=== PATIENT | female | born 1940 | race Caucasian/White ===

== ENCOUNTER 2020-03-17 09:42 | Outpatient (CLI) | payer MEDICARE, SELFPAY ==
--- NOTE | ~2020-03-17 | US_ITS ---
EXAMINATION: US abdomen complete EXAM DATE: 03/17/2020 10:32 INDICATION: Abdominal pain, constipation. TECHNIQUE: Multiple grayscale and Doppler images of the complete abdomen were obtained (by a technolo gist who performed the scan) and subsequently reviewed. Comparison is made to prior examination from 04/21/2014, kidneys only. FINDINGS: The abdominal aorta is normal in caliber. Visualized portion IVC is patent. The pancreatic head a nd body are normal in appearance. The pancreatic tail is not visualized. The liver has normal echogenicity and contour. There are no focal liver lesions identified. There is no evidence of intrahepatic biliary duct dilation. Portal venous flow was seen in the hepatopedal , normal direction and has normal Doppler waveform. Common bile duct measures 3 mm, which is normal. The gallbladder wall is normal in thickness, with ex pected amount of distention. No sonographic evidence of pericholecystic fluid. There is no cholelit hiases. Technologist performing exam reports patient did not demonstrate sonographic Young's sign. Please note that this sign is less reliable in patients who have received pain medication. Right kidney: There is normal contour and echogenicity. It measures 8.6 x 3.6 x 6.0 centimeters. T here are no focal renal lesions identified. There is no hydronephrosis. Left kidney: There is normal contour and echogenicity. It measures 7.7 x 3.8 x 4.7 centimeters. Th ere are no focal renal lesions identified. There is no hydronephrosis. The spleen measures 7.1 centimeters and is morphologically normal. Compared to 2013, the dimensions of the kidneys have demonstrated mild interval decrease consistent w ith mild renal atrophy bilaterally. IMPRESSION: 1. Mild bilateral renal atrophy. Reviewed, dictated and finalized at location A.
== END 2020-03-17 09:43 | disposition home or self-care (01) ==
LOC: ANHIMG 09:47
PROVIDERS: PCP Family Medicine; Visit Provider Nurse Practitioner Family
DX: R10.9 Unspecified abdominal pain (principal); N26.1 Atrophy of kidney (terminal)
CPT/HCPCS: 76700

== ENCOUNTER 2020-03-27 11:04 | Outpatient (CLI) | payer MEDICARE, SELFPAY ==
--- NOTE | ~2020-03-27 | CT_ITS ---
EXAMINATION: CT abdomen pelvis wo con DATE: 03/27/2020 11:58 INDICATION: Epigastric abdominal pain. Constipation. TECHNIQUE: Computed tomography (CT) of the abdomen and pelvis was performed without intravenous contr ast. Automated exposure control and iterative reconstruction technique were employed. The dose-length product was 229.98 mGy-cm. COMPARISON: None. FINDINGS: The visualized portions of the lung bases demonstrate mild atelectasis. No pleural effusion . The heart size is normal. No pericardial effusion. The liver, gallbladder, spleen, pancreas, adrena l glands, and kidneys are normal. There is no urolithiasis. There are no dilated loops of bowel. Ther e is wall thickening of the terminal ileum. There is fat stranding in the right lower quadrant. The a ppendix is not visualized. There are no pathologically enlarged lymph nodes. There is no free intrape ritoneal fluid. There is moderate lumbar spondylosis. IMPRESSION: 1. Wall thickening of the terminal ileum, consistent with infection versus Crohn disease. Reviewed, dictated and finalized at location A. IMPRESSION: 1. Wall thickening of the terminal ileum, consistent with infection versus Croh n disease.
== END 2020-03-27 11:05 | disposition home or self-care (01) ==
PROVIDERS: PCP Family Medicine; Visit Provider Nurse Practitioner Family
DX: R10.9 Unspecified abdominal pain (principal)
CPT/HCPCS: 74176

== ENCOUNTER 2020-06-26 11:18 | Outpatient (CLI) | payer MEDICARE, SELFPAY ==
--- NOTE | ~2020-06-26 | XR_ITS ---
EXAMINATION: XR abdomen obstructive series DATE: 06/26/2020 11:39 INDICATION: Abdomen pain TECHNIQUE: Supine and upright views of the abdomen. FINDINGS: No prior studies for comparison. The visualized lung parenchyma is normal.. There is a nonobstructive bowel gas pattern. There is surg ical suture line right abdomen consistent with previous partial colon resection. Gas and stool are se en throughout the colon to the level of the rectum. There is no free air. Calcifications in the pelv is are believed to be phleboliths. IMPRESSION: 1. No acute abdominal abnormality. Reviewed, dictated and finalized at location A.
--- NOTE | ~2020-06-26 | XR_ITS ---
EXAMINATION: XR chest 1V 06/26/2020 11:39 INDICATION: Upper abdomen pain. Previous colon resection. PROCEDURE: PA view of the chest COMPARISON: FINDINGS: The lungs are clear. The cardiomediastinal silhouette is within normal limits. There are no pleural effusions. There is no pneumothorax suspected. IMPRESSION: 1: NO ACUTE CARDIOPULMONARY DISEASE. Reviewed, dictated and finalized at location A.
== END 2020-06-26 11:19 | disposition home or self-care (01) ==
PROVIDERS: PCP Family Medicine; Visit Provider Internal Medicine Medical Oncology
DX: R10.9 Unspecified abdominal pain (principal); C18.9 Malignant neoplasm of colon, unspecified
CPT/HCPCS: 71045; 74019

== ENCOUNTER 2020-06-29 11:34 | Emergency (ER) | payer MEDICARE, SELFPAY ==
[2020-06-29] VITALS (7 sets, daily range): BP systolic 90–116; BP diastolic 53–82; PULSE 75–105; RESP 16–18; TEMP 36.6; O2SAT 97–100
--- NOTE | ~2020-06-29 | CT_ITS ---
EXAMINATION: CT abdomen pelvis w con EXAM DATE: 06/29/2020 12:55 INDICATION: Colon resection Reva. Abdominal pain today. TECHNIQUE: Spiral CT of the abdomen and pelvis was performed following intravenous injection of 100 m L Omnipaque 350. Axial, coronal and sagittal images were reviewed. The dose-length product (DLP) fo r this examination was 185.65 mGy-cm. The exposure was tailored according to patient size (auto mA e xposure control), and iterative reconstruction (ASIR) was used as additional dose reduction technique . Comparison is made to prior examination from 03/27/2020. FINDINGS: The liver, spleen, adrenal glands and pancreas are unremarkable. Gallbladder is unremarkab le. No biliary obstruction. Portal and splenic veins are patent. Kidneys enhance symmetrically. T here is no hydronephrosis. The uterus is not identified and has likely been surgically resected. There is some thickening of the inner fold of the right labia majora. The bladder is undistended at t won of imaging. There is no retroperitoneal or pelvic lymphadenopathy. There is mild scattered art eriosclerotic disease. There is fluid throughout the colon, correlate for diarrhea. There is mild rectosigmoid colonic wall edema. There is an ileocolic anastomosis site in the right lower quadrant with moderate edema of the ileum proximal to the anastomosis site. Consider enterocolitis, diarrhea. No abscess or perforation. No free intraperitoneal gas. The heart is normal in size. There are no pericardial or pleural effu sions. The lung bases are unremarkable. There are no osteoblastic or osteolytic lesions identified. IMPRESSION: 1. Ileocolic fluid and edema, consider enterocolitis. 2. Some skin thickening intervals right labia majora. Differential diagnosis includes cellulitis, ca ncer. Reviewed, dictated and finalized at location A. IMPRESSION: 1. Ileocolic fluid and edema, consider enterocolitis. 2. Some skin thickening intervals right labia majora. Differential diagnosis i ncludes cellulitis, cancer.
[2020-06-29 11:56] LABS: Basophils Percent Auto 0.1 % (0.2-1.2); Eosinophils Absolute Auto 0.1 K/mm3 (0-0.3); Eosinophils Percent Auto 0.5 % (0-4.4); Hematocrit 42.4 % (37.0-47.0); Hemoglobin 14.5 g/dL (12.0-15.0); Immature Granulocyte Absolute 0.08 K/mm3 (0.00-0.031); Immature Granulocyte Percent A 0.8 % (0-0.5); Lymphocytes Absolute Auto 1.74 K/mm3 (0.9-3.2); Lymphocytes Percent Auto 16.7 % (18.3-44.2); Mean Corpuscular HGB Conc 34.2 g/dl (32-36); Mean Corpuscular Volume 87.6 fl (80-100); Monocytes Absolute Auto 1.9 K/mm3 (0.1-0.6); Monocytes Percent Auto 17.8 % (2.6-8.5); Neutrophils Absolute Auto 6.7 K/mm3 (1.3-6.7); Neutrophils Percent Auto 64.1 % (45.5-73.1); Platelet Count Result 383 k/mm3 (150-375); Red Blood Count 4.84 M/mm3 (4.2-5.4); Red Cell Distribution Width 17.2 % (11.5-14.5); White Blood Count 10.4 K/mm3 (4.5-10.0)
[2020-06-29 12:10] LABS: Alanine Aminotransferase 11 U/L (4-35); Albumin Level 3.7 g/dL (3.5-5.1); Alkaline Phosphatase 88 U/L (38-126); Anion Gap 9 mmol/L (8-16); Aspartate Amino Transferase 18 U/L (14-36); Bilirubin,Total 0.3 mg/dL (0.2-1.3); Blood Urea Nitrogen 23 mg/dL (7-17); Calcium 9.1 mg/dL (8.4-10.2); Carbon Dioxide 27 mmol/L (22-30); Chloride 95 mmol/L (98-107); Estimated CRCL calculation 33 ml/min; Estimated Glomerular Filt Rate 53; Glucose 118 mg/dL (65-105); Lipase 93 U/L (23-300); Potassium 2.9 mmol/L (3.4-5.0); Sodium 131 mmol/L (137-145)
--- NOTE | 2020-06-29 12:16 | PC.NURSE ---
pt reminded of need for ua, states she does not have to go right now, refusing straight cath.
--- NOTE | 2020-06-29 12:40 | PC.NURSE ---
[PT AGAIN REMINDED OF NEED FOR UA, REFUSING CATH.
--- NOTE | 2020-06-29 12:56 | PC.NURSE ---
PT IN CT AT THIS TIME.
--- NOTE | 2020-06-29 13:22 | PC.NURSE ---
PT STILL UNABLE TO GIVE UA, REFUSING CATH.
--- NOTE | 2020-06-29 13:22 | ED.GENADULT ---
HPI - General Adult General Chief complaint: Abdominal Pain Stated complaint: abd pain Time Seen by Provider: 06/29/20 12:12 Source: patient History of Present Illness HPI narrative: Patient is a 80 y/o female complaining of epigastric pain for last 2-3 months. She is unable to describe the nature of pain. She rates her pain as 7/10. There is no pain radiation, no alleviating or exacerbating factor. She has no vomiting or diarrhea. Of note, she had surgery for colon cancer a few weeks ago. However, her pain was present prior to the surgery and has remained unchanged after the surgery. Related Data Home Medications Medication Instructions Recorded Confirmed Adults Multivitamin 1 tablet PO DAILY 09/25/19 09/25/19 aspirin 81 mg PO DAILY 09/25/19 09/25/19 simvastatin 40 mg DAILY 09/25/19 09/25/19 Allergies Allergy/AdvReac Type Severity Reaction Status Date / Time No Known Allergies Allergy Unknown Verified 07/21/14 09:31 Review of Systems Constitutional: Constitutional: Denies chills, Denies fever(s), Denies headache(s) and Denies weakness Eyes: Eyes: Denies blurry vision ENT: Denies headache(s) and Denies neck pain Cardiovascular: Cardiovascular: Denies chest pain and Denies dyspnea Respiratory: Respiratory: Denies cough and Denies dyspnea Gastrointestinal: Gastrointestinal: Reports abdominal pain, Denies diarrhea, Denies nausea and Denies vomiting Genitourinary: Genitourinary: Denies hematuria and Denies dysuria Musculoskeletal: Musculoskeletal: Denies back pain and Denies neck pain Neurologic: Denies headache(s) and Denies weakness PMF Past Medical History Medical History HLD (hyperlipidemia) HTN (hypertension) Hypothyroid Surgical History Surgical History H/O: hysterectomy Social History Social History Social History: The patient is and lives with her in [place]. She does states her , Rodrigo, and her family members as her surrogate decision makers and she wishes to be a full code. She denies alcohol, tobacco, and drug abuse. Smoking status: Never smoker Alcohol intake: never Substance use: never Gender identity (if verbalized by the patient): Female Spiritual care concerns: No Agree to blood products: Yes Exam Const: General: no acute distress and well developed Orientation/consciousness: oriented to person, oriented to place, oriented to time and patient oriented x3 HENMT: Head: normocephalic Ears: external ears normal General nose exam: Normal external nose present Eyes: General: appearance normal, both eyes and all related structures Conjunctivae: conjunctivae normal Neck: Neck: normal visual inspection and full ROM Chest: Chest palpation & inspection: normal inspection of the chest and no tenderness Resp: Effort & Inspection: normal respiratory effort Auscultation: clear to auscultation bilaterally Cardio: Rate: regular rate Rhythm: regular rhythm GI: GI Palp: No abdominal tenderness and Yes Soft to palpation Skin: General skin exam: normal color and turgor normal Neuro: General: oriented to person, oriented to place, oriented to time and patient oriented x3 Cognition (Neuro): normal cognition Extrem: General: normal to inspection, full ROM and no pedal edema Psych: Appearance: grossly normal Mental Status: mental status grossly normal Affect: normal affect Course Reevaluation(s) Reevaluation #1: Rechecked patient. Discussed patient about CT finding. Re-examined patient regarding CT finding of labial swelling. No significant swelling or mass is seen on labia. Patient is instructed to follow up [facility] for further evaluation. Date: 06/29/20 Time: 15:25 Consultations Consultation #1: Discussed with Dr. Kylah Ley (), who agrees with plan for discharge and will
--- NOTE | 2020-06-29 13:29 | PC.NURSE ---
PT ATTEMPTING UA NOW.
[2020-06-29 14:25] LABS: Add Urine Microscopic? YES; Appearance Urine Clear (Clear); Bacteria Urine Trace /hpf; Bilirubin Urine Negative (Negative); Blood Urine Negative (Negative); Color Urine Yellow (Yellow); Glucose Urine UA Negative (Negative); Ketones Urine Trace mg/dL (Negative); Leukocyte Esterase Ur Negative LEU/UL (Negative); Mucus Urine Few /lpf; Nitrate Urine Negative (Negative); Protein Urine Negative (Negative); Squamous Epithelial Cell Urine Rare /hpf (Few); Urobilinogen Urine Negative mg/dL (<2.0); WBC Urine 0-3 /hpf
[2020-06-29 14:26] LABS: Specific Grav Ur > 1.060 (1.001-1.035)
--- NOTE | 2020-06-29 15:22 | PC.NURSE ---
minoo pelayo at bedside to assess pt labia swelling that was shown on the pt ct scan.
[2020-06-29] MEDS: POTASSIUM CHLORIDE 20 MEQ TABLET 40 MEQ PO (16:41)
== END 2020-06-29 16:49 | disposition home or self-care (01) ==
PROVIDERS: General Practice; Emergency Provider Emergency Medicine; PCP Family Medicine
DX: R10.13 Epigastric pain (principal); E78.5 Hyperlipidemia, unspecified; I10 Essential (primary) hypertension; E03.9 Hypothyroidism, unspecified
CPT/HCPCS: 36415; 51701; 74177; 80053; 81001; 83690; 85025; 99284; A9270; Q9967

== ENCOUNTER 2020-09-20 08:43 | Outpatient (CLI) | payer MEDICARE, SELFPAY ==
--- NOTE | ~2020-09-20 | CT_ITS ---
EXAMINATION: CT abdomen pelvis w con INDICATION: Malignant neoplasm of the ascending colon TECHNIQUE: Computed tomographic images of the abdomen and pelvis were obtained after the administrati on of 100 cc of Omnipaque 350 intravenous contrast. The dose-length product (DLP) was 187.96 mGy-cm. Automated exposure control and iterative reconstruction technique were employed. COMPARISON: 06/29/2020 FINDINGS: Minimal dependent atelectasis is present in the lung bases. The heart size is normal. There is focal low attenuation of the liver adjacent to the ligamentum teres which appears similar to the comparison examination. The spleen, pancreas, and adrenal glands are normal. Stones are present in th e nondistended gallbladder. The kidneys are unremarkable. There are changes of right hemicolectomy. N o residual or recurrent mass is identified. No pathologically enlarged abdominal or pelvic lymph node s are identified. There is no free intraperitoneal gas or evidence of bowel obstruction. There is a s mall amount of free fluid in the pelvis. There is mild lumbar spondylosis. IMPRESSION: 1. Focal low-attenuation of the liver adjacent to the ligamentum teres which appears stable and likel y represents focal fatty infiltration. Attention on follow-up examination is recommended. Reviewed, dictated and finalized at location A. ATION CHECKER IMPRESSION: 1. Focal low-attenuation of the liver adjacent to the ligamentum teres which ap pears stable and likely represents focal fatty infiltration. Attention on follo w-up examination is recommended.
[2020-09-20 10:32] LABS: Estimated Glomerular Filt Rate 53
== END 2020-09-20 08:44 | disposition home or self-care (01) ==
PROVIDERS: PCP Family Medicine; Visit Provider Internal Medicine Medical Oncology
DX: C18.2 Malignant neoplasm of ascending colon (principal); K80.80 Other cholelithiasis without obstruction
CPT/HCPCS: 74177; Q9967

== ENCOUNTER 2021-02-21 10:28 | Outpatient (CLI) | payer MEDICARE, SELFPAY ==
--- NOTE | ~2021-02-21 | CT_ITS ---
EXAMINATION: CT abdomen pelvis w con DATE: 02/21/2021 11:06 INDICATION: Ascending colon cancer TECHNIQUE: Computed tomography (CT) of the abdomen and pelvis was performed with 100 mL Omnipaque-350 intravenous contrast. Automated exposure control and iterative reconstruction technique were employe d. The dose-length product was 242.37 mGy-cm. COMPARISON: 09/20/2020 FINDINGS: Mild dependent atelectasis in the bilateral lower lobes. Heart size is normal. No pericardial or pleu ral effusion. Focal hepatic steatosis at the ligamentum teres. Tiny calcified gallstones layering in the dependent aspect of the fundus of the otherwise normal gallbladder. Spleen, pancreas, bilateral a drenal glands and kidneys are normal. Postoperative change of prior right hemicolectomy with right lo wer quadrant ileocolic anastomosis. No bowel obstruction. Bladder is normal. The uterus is not identi fied and has likely been surgically resected. No free intraperitoneal gas or fluid. No pathologically enlarged abdominal or pelvic lymphadenopathy. Mild lumbar dextrocurvature with mild thoracolumbar sp ondylosis. IMPRESSION: 1. Postoperative change of prior right hemicolectomy for reported colon cancer. No evident residual/r ecurrent or metastatic disease. 2. Cholelithiasis. Reviewed, dictated and finalized at location A. IMPRESSION: 1. Postoperative change of prior right hemicolectomy for reported colon cancer. No evident residual/recurrent or metastatic disease. 2. Cholelithiasis.
[2021-02-21 10:58] LABS: Estimated Glomerular Filt Rate 43
== END 2021-02-21 10:29 | disposition home or self-care (01) ==
PROVIDERS: PCP Family Medicine; Visit Provider Internal Medicine Medical Oncology
DX: C18.2 Malignant neoplasm of ascending colon (principal); Z90.49 Acquired absence of other specified parts of digestive tract; K80.20 Calculus of gallbladder without cholecystitis without obstruction
CPT/HCPCS: 74177; Q9967

== ENCOUNTER 2021-04-11 09:33 | Outpatient (CLI) | payer MEDICARE, SELFPAY ==
--- NOTE | ~2021-04-11 | NM_ITS ---
EXAMINATION: NM hepatobiliary wo pharm DATE: 04/11/2021 12:24 INDICATION: Epigastric pain COMPARISON: CT abdomen and pelvis dated 02/21/2021 TECHNIQUE: 4.9 mCi Tc-99m mebrofenin (Choletec) was administered intravenously. Scintigraphic images of the abdomen were obtained for one hour. At the 1 hour time point, the patient drank 8 oz Ensure, and imaging was continued for 60 minutes. Gallbladder ejection fraction was calculated by the technol ogist. FINDINGS: There is normal clearance of radiotracer from the blood pool. There is homogeneous tracer u ptake by the liver. Activity progresses to the bowel and gallbladder. The gallbladder ejection fract ion (GBEF) is 67%. Note that with this technique, normal GBEF >= 33%. IMPRESSION: 1. Normal hepatobiliary scan. Reviewed, dictated and finalized at location A.
== END 2021-04-11 09:34 | disposition home or self-care (01) ==
PROVIDERS: PCP Family Medicine; Visit Provider Surgery
DX: K80.20 Calculus of gallbladder without cholecystitis without obstruction (principal); R10.13 Epigastric pain
CPT/HCPCS: 78226; A9537

== ENCOUNTER 2021-05-24 01:38 | Day surgery (SDC) | payer MEDICARE, SELFPAY ==
[2021-05-16 13:31] VITALS: BMI 21.6
[2021-05-24 10:24] VITALS: BP 131/71; PULSE 81; RESP 16; TEMP 35.7; O2SAT 99; BMI 21.5
--- NOTE | 2021-05-24 10:27 | P.PNAN_ITS ---
Anes - Initial Pre Proc Eval Procedure: Operation Date: 05/24/21 11:30 Proposed Procedures p Screening Colonoscopy - James Nickerson MD Date/Time: 05/24/21 10:27 Surgeon: James Nickerson MD Pre Op Diagnosis: hx of colon ca Patient Data Age: 81 Gender: F Height: 1.65 m Weight: 59 kg Allergies Allergy/AdvReac Type Severity Reaction Status Date / Time No Known Allergies Allergy Unknown Verified 05/24/21 10:22 Home Medications Medication Instructions Recorded Confirmed Type Adults Multivitamin 1 tablet PO DAILY 09/25/19 05/16/21 History aspirin 81 mg PO DAILY 09/25/19 05/16/21 History levothyroxine 75 mcg PO DAILY #30 tablet 09/26/19 05/16/21 Rx Patient hx anesthesia problems: none Family hx anesthesia problems: none PMFSH Past Medical History Medical History History of colon cancer HLD (hyperlipidemia) HTN (hypertension) Hypothyroid Surgical History Surgical History H/O: hysterectomy History of colon resection Family History Family History Father Lung cancer Mother Throat cancer Social History Social History Social History: The patient is and lives with her in [place]. She does states her , Rodrigo, and her family members as her surrogate decision makers and she wishes to be a full code. She denies alcohol, tobacco, and drug abuse. Smoking status: Never smoker Alcohol intake: never Substance use: never Substance use type: does not use Living arrangements: with family Gender identity (if verbalized by the patient): Female Spiritual care concerns: No Agree to blood products: Yes Anes - Eval Final PreProcedure Day of Procedure 05/24/21 10:27 Patient weight: normal Heart: regular rate and rhythm Lungs: clear to auscultation Airway: Mallampati scale class II Neurological: alert and oriented Last oral intake: >/= 8 hours ASA classification: III Emergent: no Anesthetic plan: proceed Anesthesia type and monitoring: general GIVS and standard monitoring Informed Consent: The patient's anesthetic plan and its attendant risks and benefits were discussed with the patient/family/POA. Questions were solicited and answers provided to the satisfaction of the patient/family/POA.
--- NOTE | 2021-05-24 10:37 | WPDGICN ---
Assessment and Plan Assessment and plan (1) Epigastric pain: Code(s): R10.13 - Epigastric pain Status: Acute Assessment and Plan: Patient is epigastric pain of uncertain etiology. Recent HIDA scan was normal for this reason EGD will be performed. (2) Cholelithiasis: Code(s): K80.20 - Calculus of gallbladder without cholecystitis without obstruction Status: Acute Assessment and Plan: Gallstones identified by CT scan. Patient has vague a upper abdominal discomfort. Etiology remains unclear patient will follow up with surgery because of her gallstones. (3) History of colon cancer: Code(s): Z85.038 - Personal history of other malignant neoplasm of large intestine Status: Inactive Assessment and Plan: Patient had colon cancer resected 1 year. Plan is for surveillance colonoscopy at this time. One year after resection. GI Consult Note Consult date/time: 05/24/21 10:37 HPI: Ella Krishna is a 81 year old female Presents for screening colonoscopy. Patient has history of colon cancer found 1 year ago in [facility]. patient presents today for follow-up colonoscopy 1 year after resection. Patient reports that ever since surgery she has vague discomfort across the upper portion of her abdomen. She has undergone evaluation includes CT scan of the abdomen which revealed cholelithiasis. Recent HIDA scan was unremarkable and considered normal. Patient has been followed by Dr. Cronin of surgery for this discomfort. Patient reports that her bowel habits are much improved after colon resection. Her family history is noncontributory. She does indeed have epigastric pain. Review of Systems Review of Systems: All systems reviewed & are unremarkable except as noted in HPI and below PMFSH Past Medical History Medical History (Updated 05/24/21 @ 10:41 by James Nickerson MD) History of colon cancer HLD (hyperlipidemia) HTN (hypertension) Hypothyroid Surgical History Surgical History H/O: hysterectomy History of colon resection Family History Family History Father Lung cancer Mother Throat cancer Social History Social History Social History: The patient is and lives with her in [place]. She does states her , Rodrigo, and her family members as her surrogate decision makers and she wishes to be a full code. She denies alcohol, tobacco, and drug abuse. Smoking status: Never smoker Alcohol intake: never Substance use: never Substance use type: does not use Living arrangements: with family Gender identity (if verbalized by the patient): Female Spiritual care concerns: No Agree to blood products: Yes Meds Home Medications and Allergies Home Medications Medication Instructions Recorded Confirmed Type Adults Multivitamin 1 tablet PO DAILY 09/25/19 05/16/21 History aspirin 81 mg PO DAILY 09/25/19 05/16/21 History levothyroxine 75 mcg PO DAILY #30 tablet 09/26/19 05/16/21 Rx Allergies Allergy/AdvReac Type Severity Reaction Status Date / Time No Known Allergies Allergy Unknown Verified 05/24/21 10:22 Vital Signs Vital Signs - 24 hr 05/24/21 10:24 Temperature 96.3 F L Pulse Rate 81 Respiratory Rate 16 Blood Pressure 131/71 Pulse Oximetry 99 Exam Narrative: Physical exam reveals patient to be alert. Vital signs stable. HEENT exam is unremarkable. Patient is anicteric. Lungs are clear to auscultation and percussion. Heart is without murmur or extra sounds. Abdominal exam bowel sounds present soft nontender no organomegaly evident. No at masses palpable. Digital external rectal exam is normal.
[2021-05-24] MEDS: LACTATED RINGERS 1,000 ML 150 ML IV CONT (10:38)
[2021-05-24 11:23] VITALS: BP 101/54; PULSE 64; RESP 18; O2SAT 99
[2021-05-24 11:33] VITALS: BP 111/62; PULSE 63; RESP 16; O2SAT 99
[2021-05-24 11:43] VITALS: BP 111/62; PULSE 60; RESP 16; O2SAT 99
== END 2021-05-24 12:05 | disposition home or self-care (01) ==
PROVIDERS: PCP Family Medicine; Visit Provider Internal Medicine Gastroenterology
PROC: 0DJD8ZZ Inspection of Lower Intestinal Tract, Via Natural or Artificial Opening Endoscopic (ICD-10-PCS; CPT 45378; principal; 2021-05-24 11:30)
DX: Z12.11 Encounter for screening for malignant neoplasm of colon (principal); K63.5 Polyp of colon; K64.8 Other hemorrhoids; Z85.038 Personal history of other malignant neoplasm of large intestine; Z98.0 Intestinal bypass and anastomosis status; Z90.49 Acquired absence of other specified parts of digestive tract; R10.13 Epigastric pain; K80.20 Calculus of gallbladder without cholecystitis without obstruction; I10 Essential (primary) hypertension; E78.5 Hyperlipidemia, unspecified; E03.9 Hypothyroidism, unspecified
CPT/HCPCS: 45385; 43239; 87081; 88305; J2704; J7120

== ENCOUNTER 2021-08-19 09:15 | Outpatient (CLI) | payer MEDICARE, SELFPAY ==
--- NOTE | ~2021-08-19 | CT_ITS ---
EXAMINATION: CT abdomen pelvis w con INDICATION: Malignant neoplasm of the ascending colon TECHNIQUE: Computed tomographic images of the abdomen and pelvis were obtained after the administrati on of 100 cc of Omnipaque 350 intravenous contrast. The dose-length product (DLP) was 280.76 mGy-cm. Automated exposure control and iterative reconstruction technique were employed. COMPARISON: 02/21/2021 FINDINGS: Minimal dependent atelectasis is present in the lung bases. The heart size is normal. Again noted is focal steatosis. Ligamentous areas of the liver. The spleen, pancreas, and adrenal glands a re normal. Stones layer in the nondistended gallbladder. The kidneys are unremarkable. No pathologica lly enlarged abdominal or pelvic lymph nodes are identified. There is no free intraperitoneal gas or evidence of bowel obstruction. There is calcified atherosclerosis of the aorta and many of the other arteries. There are changes of right hemicolectomy. There is mild lumbar spondylosis. There is an in tramuscular lipoma of the right chest wall. IMPRESSION: 1. Changes of right hemicolectomy without evidence of recurrent or metastatic disease. 2. Cholelithiasis without evidence of cholecystitis. Reviewed, dictated and finalized at location B. IMPRESSION: 1. Changes of right hemicolectomy without evidence of recurrent or metastatic d isease. 2. Cholelithiasis without evidence of cholecystitis.
[2021-08-19 09:45] LABS: Estimated Glomerular Filt Rate 43
== END 2021-08-19 09:16 | disposition home or self-care (01) ==
PROVIDERS: PCP Family Medicine; Visit Provider Internal Medicine Medical Oncology
DX: C18.2 Malignant neoplasm of ascending colon (principal); Z90.49 Acquired absence of other specified parts of digestive tract; K80.20 Calculus of gallbladder without cholecystitis without obstruction
CPT/HCPCS: 74177; Q9967

== ENCOUNTER 2021-12-29 09:58 | Outpatient (CLI) | payer MEDICARE, SELFPAY ==
--- NOTE | ~2021-12-29 | CT_ITS ---
EXAMINATION: CT abdomen pelvis w con DATE: 12/29/2021 10:29 INDICATION: Malignant neoplasm of ascending colon. TECHNIQUE: Computed tomography (CT) of the abdomen and pelvis was performed with 100 mL Omnipaque 350 intravenous contrast. Automated exposure control and iterative reconstruction technique were employe d. The dose-length product was 352.85 mGy-cm. COMPARISON: CT abdomen and pelvis 08/19/2021 FINDINGS: The visualized portions of the lung bases demonstrate mild atelectasis. No pleural effusion . The heart size is normal. No pericardial effusion. The liver demonstrates focal steatosis adjacent to the falciform ligament. There are gallstones in the gallbladder, which is normal in size. The sple en, adrenal glands, and kidneys are normal. Pancreas divisum is noted. There are changes of right hem icolectomy. There are no pathologically enlarged lymph nodes. There is no free intraperitoneal fluid. There is mild thoracic spondylosis and moderate lumbar spondylosis. IMPRESSION: 1. No evidence of metastatic disease. Reviewed, dictated and finalized at location A.
[2021-12-29 10:25] LABS: Estimated Glomerular Filt Rate 48
== END 2021-12-29 09:59 | disposition home or self-care (01) ==
PROVIDERS: PCP Family Medicine; Visit Provider Internal Medicine Medical Oncology
DX: C18.2 Malignant neoplasm of ascending colon (principal); R10.9 Unspecified abdominal pain; M47.815 Spondylosis without myelopathy or radiculopathy, thoracolumbar region
CPT/HCPCS: 74177; Q9967

== ENCOUNTER 2022-07-25 08:42 | Outpatient (CLI) | payer MEDICARE, SELFPAY ==
--- NOTE | ~2022-07-25 | CT_ITS ---
EXAMINATION: CT abdomen pelvis w con INDICATION: Malignant neoplasm of the ascending colon TECHNIQUE: Computed tomographic images of the abdomen and pelvis were obtained after the administrati on of 100 cc of Omnipaque 350 intravenous contrast. The dose-length product (DLP) was 362.86 mGy-cm. Automated exposure control and iterative reconstruction technique were employed. COMPARISON: 12/29/2021 FINDINGS: Minimal dependent atelectasis is present in the lung bases. The heart size is normal. There is focal fatty infiltration of the liver near the ligamentum teres. Stones are present in the nondis tended gallbladder. The spleen and adrenal glands are normal. The kidneys are unremarkable. Pancreas divisum is noted. No pathologically enlarged abdominal or pelvic lymph nodes are identified. There is no free intraperitoneal gas or evidence of bowel obstruction. There are changes of right hemicolecto my. There are fat-containing umbilical and periumbilical hernias. Moderate lumbar IMPRESSION: 1. Changes of right hemicolectomy without evidence of metastatic disease. 2. Cholelithiasis without evidence of cholecystitis. Reviewed, dictated and finalized at location A.
[2022-07-25 09:09] LABS: Estimated Glomerular Filt Rate 43
== END 2022-07-25 08:43 | disposition home or self-care (01) ==
PROVIDERS: PCP Family Medicine; Visit Provider Internal Medicine Medical Oncology
DX: C18.2 Malignant neoplasm of ascending colon (principal); Z90.49 Acquired absence of other specified parts of digestive tract; K80.20 Calculus of gallbladder without cholecystitis without obstruction
CPT/HCPCS: 74177; Q9967

== ENCOUNTER 2023-01-19 09:39 | Outpatient (CLI) | payer MEDICARE, SELFPAY ==
--- NOTE | ~2023-01-19 | CT_ITS ---
EXAMINATION: CT abdomen pelvis w con DATE: 01/19/2023 10:31 INDICATION: Malignant neoplasm of the ascending colon. TECHNIQUE: Computed tomography (CT) of the abdomen and pelvis was performed with 100 mL Omnipaque-350 intravenous contrast. Automated exposure control and iterative reconstruction technique were employe d. The dose-length product was 424.47 mGy-cm. COMPARISON: 07/25/2022 FINDINGS: Focal hepatic steatosis at the ligamentum teres. Tiny calcified gallstones layering the dependent asp ect of the normal gallbladder. No intra-axial hepatic biliary ductal dilation or findings to suggest acute cholecystitis. Pancreas, spleen, bilateral adrenal glands and kidneys are normal. Proximal righ t hemicolectomy reportedly for malignant neoplasm with right lower quadrant ileocolic anastomosis. Александр wels are otherwise unremarkable with no obstruction. Bladder is normal. The uterus is not identified and has likely been surgically resected. No free intraperitoneal gas or fluid. No pathologically enla rged abdominal or pelvic lymphadenopathy. Small fat-containing infraumbilical ventral hernia. Moderat e lumbar spondylosis. IMPRESSION: 1. Status post right hemicolectomy reportedly for malignant neoplasm with no evident local recurrence or metastatic disease. 2. Cholelithiasis. Reviewed, dictated and finalized at location A. IMPRESSION: 1. Status post right hemicolectomy reportedly for malignant neoplasm with no ev ident local recurrence or metastatic disease. 2. Cholelithiasis.
[2023-01-19 10:21] LABS: Estimated Glomerular Filt Rate 48
== END 2023-01-19 09:40 | disposition home or self-care (01) ==
PROVIDERS: PCP Family Medicine; Visit Provider Internal Medicine Medical Oncology
DX: C18.2 Malignant neoplasm of ascending colon (principal); Z90.49 Acquired absence of other specified parts of digestive tract; K80.20 Calculus of gallbladder without cholecystitis without obstruction
CPT/HCPCS: 74177; Q9967

== ENCOUNTER 2023-07-20 08:41 | Outpatient (CLI) | payer MEDICARE, SELFPAY ==
--- NOTE | ~2023-07-20 | CT_ITS ---
Clinical Indication: Colon cancer CT Scan of the Chest, Abdomen, and Pelvis with Contrast: Technique: Contiguous sections were acquired throughout the chest, abdomen, and pelvis after intraven ous administration of 100 cc of Omnipaque 350. Dose reduction technique was used on this scan by chapis gaonaing automated exposure control and iterative reconstruction technique. The dose-length product (DL P) was 517.66 mGy-cm. COMPARISON: 01/19/2023 Findings: There is no evidence of any significant mediastinal, hilar or axillary lymphadenopathy. The mediastin al soft tissues appear normal. There is no evidence of pleural or pericardial effusion. 3 mm right upper lobe pulmonary nodule noted (axial image 32). The liver, spleen, pancreas, adrenals and kidneys are within normal limits. Small layering gallstones are present. No evidence of aortic aneurysm. No lymphadenopathy. No bowel obstruction or bowel wall thickening. There is evidence of prior partial right colectomy. Ve ry small ventral fat-containing hernia noted. Urinary bladder is unremarkable. Patient is post hysterectomy. No adnexal mass seen. No ascites. Impression: No definite evidence for active malignancy or metastatic disease. Prior partial right colectomy. Cholelithiasis. 3 mm right upper lobe pulmonary nodule, indeterminate, though likely benign. Reviewed, dictated and finalized at location . Impression: No definite evidence for active malignancy or metastatic disease. Prior partial right colectomy. Cholelithiasis. 3 mm right upper lobe pulmonary nodule, indeterminate, though likely benign.
[2023-07-20 09:07] LABS: Estimated Glomerular Filt Rate 43
== END 2023-07-20 08:42 | disposition home or self-care (01) ==
PROVIDERS: PCP Family Medicine; Visit Provider Internal Medicine Medical Oncology
DX: C18.2 Malignant neoplasm of ascending colon (principal); Z90.49 Acquired absence of other specified parts of digestive tract; K80.20 Calculus of gallbladder without cholecystitis without obstruction; R91.1 Solitary pulmonary nodule
CPT/HCPCS: 71260; 74177; Q9967

== ENCOUNTER 2024-01-18 09:17 | Outpatient (CLI) | payer MEDICARE, SELFPAY ==
--- NOTE | ~2024-01-18 | CT_ITS ---
EXAMINATION: CT abdomen pelvis w con DATE: 01/18/2024 09:43 INDICATION: Malignant neoplasm of ascending colon. TECHNIQUE: Computed tomography (CT) of the abdomen and pelvis was performed with 100 mL Omnipaque 350 intravenous contrast. Automated exposure control and iterative reconstruction technique were employe d. The dose-length product was 350.10 mGy-cm. COMPARISON: CT abdomen and pelvis 07/20/2023 FINDINGS: The visualized portions of the lung bases demonstrate mild atelectasis. There is a trace le ft pleural effusion. The heart size is normal. No pericardial effusion. The liver demonstrates focal steatosis adjacent to the falciform ligament. There are gallstones in the gallbladder, which is gris l in size. The spleen, pancreas, adrenal glands, and kidneys are normal. There are dilated loops of b owel. There are changes of right hemicolectomy. There are no pathologically enlarged lymph nodes. The re is no free intraperitoneal fluid. There is severe lumbar spondylosis and mild thoracic spondylosis . IMPRESSION: 1. No evidence of metastatic disease. Reviewed, dictated and finalized at location A.
[2024-01-18 09:38] LABS: Estimated Glomerular Filt Rate 43
== END 2024-01-18 09:18 | disposition home or self-care (01) ==
PROVIDERS: PCP Family Medicine; Visit Provider Internal Medicine Medical Oncology
DX: C18.2 Malignant neoplasm of ascending colon (principal)
CPT/HCPCS: 74177; Q9967

== ENCOUNTER 2024-07-18 09:37 | Outpatient (CLI) | payer MEDICARE, SELFPAY ==
--- NOTE | ~2024-07-18 | CT_ITS ---
Clinical Indication: Colon cancer CT Scan of the Chest, Abdomen, and Pelvis with Contrast: Technique: Contiguous sections were acquired throughout the chest, abdomen, and pelvis after intraven ous administration of 100 cc of Omnipaque 350. Dose reduction technique was used on this scan by chapis lock automated exposure control and iterative reconstruction technique. The dose-length product (DL P) was 338.56 mGy-cm. Comparison: 01/18/2024 Findings: There is no evidence of any significant mediastinal, hilar or axillary lymphadenopathy. The mediastin al soft tissues appear normal. There is no evidence of pleural or pericardial effusion. The lungs are clear. No pulmonary nodules or infiltrates are noted. The liver, spleen, pancreas, gallbladder, adrenals and kidneys are within normal limits. There are mi ld atherosclerotic calcifications of the aorta. No lymphadenopathy. No bowel obstruction or bowel wall thickening. Evidence of prior partial right colectomy. Urinary bladder is unremarkable. No pelvic mass seen. No ascites. Impression: No evidence for active malignancy or metastatic disease. Prior partial right colectomy. Reviewed, dictated and finalized at [facility]. Impression: No evidence for active malignancy or metastatic disease. Prior partial right co lectomy.
[2024-07-18 09:59] LABS: Estimated Glomerular Filt Rate 47
== END 2024-07-18 09:38 | disposition home or self-care (01) ==
LOC: ANHIMG 09:39
PROVIDERS: PCP Nurse Practitioner Family; Visit Provider Internal Medicine Medical Oncology
DX: C18.2 Malignant neoplasm of ascending colon (principal); Z90.49 Acquired absence of other specified parts of digestive tract
CPT/HCPCS: 71260; 74177; Q9967

== ENCOUNTER 2025-01-13 08:04 | Outpatient (CLI) | payer MEDICARE, SELFPAY ==
--- NOTE | ~2025-01-13 | CT_ITS ---
EXAMINATION: CT chest abdomen pelvis w con DATE: 01/13/2025 8:34 CDT INDICATION: Neoplasm of the ascending colon TECHNIQUE: Computed tomography (CT) of the chest and abdomen was performed without intravenous contra st. The dose-length product was 294.89 mGy-cm. Automated exposure control and iterative reconstructio n technique were employed. COMPARISON: CT dated 07/18/2024 and 07/20/2023 FINDINGS: CHEST CT: Enlarged right pulmonary artery suggesting pulmonary hypertension. No thoracic lymphadenopathy. No si gnificant pleural or pericardial effusion. There are small 2-3 oh millimeter upper lobe nodules, like ly benign without change. No significant abnormality of the aorta. No endobronchial lesions. There is dependent atelectasis. No pneumothorax. No focal airspace consolidation. ABDOMEN CT: Fatty infiltration of the liver. The spleen, pancreas, adrenal glands and kidneys are unremarkable. S tatus post partial right colectomy. Moderate thoracic and lumbar spondylosis. No focal lytic or blast ic lesions. Nonobstructive bowel gas pattern. Small infraumbilical hernia containing fat. IMPRESSION: 1. No evidence for residual/recurrent malignancy or metastatic disease. Reviewed, dictated and finalized at location A.
--- OUTSIDE RECORDS SUMMARY | 2025-01-13 08:09 | XMS_ITS | Clinical Summary ---
Author Organization [facility] [address] Address [address] [place] [address] Care Team Providers Care Web Developer Name Role Phone Marina Zhou MD Primary Care Provider + Kevin Jimenez DO Unavailable [phone] Allergies No known active allergies Medications levothyroxine (SYNTHROID) 50 mcg tablet Euthyrox 50 mcg tablet TAKE 1 TABLET BY MOUTH ONCE DAILY Active aspirin 81 mg enteric coated tablet daily Active multivitamin capsule Take 1 capsule by mouth daily Active cranberry 400 mg capsule cranberry 400 mg capsule Take by oral route. Active pantoprazole DR (PROTONIX) 40 mg EC tablet Take 1 tablet (40 mg total) by mouth daily 30 tablet 1 2 Active Active Problems Problem Noted Date Diagnosed Date Chronic renal failure 07/26/2020 Hyperlipidemia 07/26/2020 Hypothyroidism 07/26/2020 Osteopenia 07/26/2020 Malignant neoplasm of ascending colon 06/03/2020 Cancer Staging:Clinical stage from 06/03/2020:Stage IIIB(cT3, cN1a, cM0) - Signed by Kevin Jimenez DO on 06/03/2020 Hypertension Resolved Problems Problem Noted Date Diagnosed Date Resolved Date Hypercalcemia 07/26/2020 08/02/2020 Polyp of colon 07/26/2020 08/02/2020 Immunizations Immunization Administration Dates Next Due Influenza, Quadrivalent, Spl it, Preservative Free, Intramuscular 07/23/2018,08/11/2015 Influenza, Trivalent, High D ose, Split, Preservative Free, Intramuscular 08/06/2019,09/10/2017,08/02/2016,08/04 Influenza, Trivalent, IM (MDV) 5,08/03/2014,09/22/2013,08/08 Influenza, Trivalent, Preser vative Free, Intramuscular 08/04/2013 Influenza, Unspecified 07/20/2021,07/13/2020 Pfizer SARS-CoV-2 Monovalent Vaccination (12+ Yrs) PURPLE 08/09/2021,12/10/2020,11/19/2020 Pneumococcal Conjugate PCV 13 11/15/2017 Td, adsorbed 02/15/1996 Tdap 02/16/2016 Surgical History Surgery Date Site/Laterality Comments COLONOSCOPY HYSTERECTOMY 10/15/1984 - 10/14/1985 unsure if ovaries removed COLON SURGERY 04/14/2020 - 05/14/2020 Right Laparoscopic hand assisted right hemicolectomy Medical History Medical History Date Comments Pneumoperitoneum Family History Medical History Relation Name Comments Lung Cancer Father Lung cancer Father Stomach cancer Maternal Grandmother Throat cancer Mother throat cancer Mother Relation Name Status Comments Father Maternal Grandmother Mother Social History Tobacco Use Types Packs/Day Years Used Date Smoking Tobacco: Never Smokeless Tobacco: Never Alcohol Use Standard Drinks/Week Comments Not Currently 0 (1 standard drink = 0.6 oz pur e alcohol) AUDIT-C Answer Date Recorded Q1: How often do you have a drink containing alcohol? Never 07/25/2024 Q2: How many drinks containi ng alcohol do you have on a typical day when you are drinking? Patient does not drink Frequency of Binge Drinking Not on file 07/15 Personal Safety Answer Date Recorded Getting School Help Needed Not on file 10/07 Education Answer Date Recorded What is the highest level of school you have completed or the highest degree you have received? 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 Not on file Not on file Not on file Obstetrics History Para Term AB IAB SAB Ectopic Multiple Livin g Live Births 2 2 2 2 2 Date Outcome GA Total Labor Labor/2nd/3rd Weight Sex Type Anes PTL Barbara A1 A5 Name Clin Term Term Comments x 2 Last Filed Vital Signs Vital Sign Reading Time Taken Comments Blood Pressure 118/77 07/25/2024 10:53 AM CDT Pulse 75 07/25/2024 10:53 AM CDT Temperature 36.8 C (98.3 F) 07/25/2024 10:53 AM CDT Respiratory Rate 18 07/25/2024 10:5 3 AM CDT Oxygen Saturation 95% 07/25/2024 10: 53 AM CDT Inhaled Oxygen Concentration - - Weight 57.8 kg (127 lb 6.8 oz) 07/25/20 10:53 AM CDT with shoes Height 161.3 cm (5' 3.5 ) 07/27/2023 10 :47 AM CDT Body Mass Index 22.22 07/27/2023 10:47 AM CDT Plan of Treatment Health Maintenance Due Date Last Done Comments Depression Screening 1941 Fall Risk Assessment 1941 Osteoporosis Screening-Bone Density Scan 1941 Hepatitis B Screening 1959 Zoster Vaccine (1 of 2) 1991 Well Visit 65+ 2006 Pneumococcal vaccine 65+ (2 of 2 - PPSV23) 11/15/2018 11/15/2017 Covid-19 Vaccine (2023-2 5 season) 2024 08/09/2021, 12/10/2020, 11/19/2020 Influenza Vaccine (#1) 2024 , 07/13/2020, 08/06/2019, Additional history exists DTaP/Tdap/Td Vaccine (2 - Td or Tdap) 02/15/2026 02/16/2016, 02/15/1996 Procedures Procedure Name Priority Date/Time Associated Diagnosis Comments COMPREHENSIVE METABOLIC PANEL Routine 01/09/2025 12:00 PM CDT Malignant neoplasm of ascending colon (HCC) CEA Routine 01/09/2025 12:00 PM CDT Malignant neoplasm of ascending colon (HCC) CBC WITH AUTO DIFFERENTIAL Routine 01/09/2025 12:00 PM CDT Malignant neoplasm of ascending colon (HCC) from Last 3 Months Results * CBC with auto differential (01/09/2025 12:00 PM CDT) WBC 6.1 3.8 - 10.8 Thousand/u L [facility] RBC, POC 3.95 3.80 - 5.10 Million/uL [facility] Hgb 12.3 11.7 - 15.5 g/dL [facility] Hct 38.2 35.0 - 45.0 % [facility] MCV 96.7 80.0 - 100.0 fL [facility] MCH 31.1 27.0 - 33.0 pg [facility] MCHC 32.2 32.0 - 36.0 g/dL [facility] Comment: For adults, a slight decrease in the calculated MCHC value (in the range of 30 to 32 g/dL) is most likely not clinically significant; however, it should be interpreted with caution in correlation with other red cell parameters and the patient's clinical condition. Rdw 11.7 11.0 - 15.0 % [facility] Platelets 348 140 - 400 Thousand/u L [facility] MPV 9.6 7.5 - 12.5 fL [facility] Neutrophils, abs 2,922 1,500 - 7,800 cells/uL [facility] Lymphocytes, abs 2,361 850 - 3,900 cells/uL [facility] Monocyte abs 659 200 - 950 cells/uL [facility] Eosinophils, abs 128 15 - 500 cells/uL [facility] Basophils, abs 31 0 - 200 cells/uL [facility] Neutrophils 47.9 % [facility] Lymphocyte pct 38.7 % [facility] Monocytes 10.8 % [facility] Eosinophils 2.1 % [facility] Basophils 0.5 % [facility] Blood 01/09/2025 12:0 0 PM CDT 01/09/2025 12:01 PM CDT Kevin Jimenez DO LAB BLOOD ORDERABLES Final R esult [facility] [address] [place] [address] * CEA (01/09/2025 12:00 PM CDT) [facility] CEA <2.0 See Note: ng/mL [facility] Comment: Reference Range: Non-Smoker: <2.5 Smoker: <5.0 This test was performed using the Siemens chemiluminescent method. Values obtained from different assay methods cannot be used interchangeably. CEA levels, regardless of value, should not be interpreted as absolute evidence of the presence or absence of disease. Blood 01/09/2025 12:0 0 PM CDT 01/09/2025 12:01 PM CDT us Kevin Jimenez DO LAB BLOOD ORDERABLES Final R esult [facility] [address] [place] [address] * (ABNORMAL) Comprehensive metabolic panel (01/09/2025 12:00 PM CDT) [facility] Glucose 95 65 - 99 mg/dL [facility] Comment: Fasting reference interval BUN 12 7 - 25 mg/dL [facility] Creatinine 0.95 0.60 - 0.95 mg/dL [facility] eGFR 59(L) > OR = 60 mL/min/1.7 3m2 [facility] BUN/creat ratio SEE NOTE: 6 - 22 (calc) [facility] Comment: Not Reported: BUN and Creatinine are within reference range. Sodium 140 135 - 146 mmol/L [facility] Potassium, pl 4.0 3.5 - 5.3 mmol/L [facility] Chloride 105 98 - 110 mmol/L [facility] CO2 29 20 - 32 mmol/L [facility] Calcium 9.3 8.6 - 10.4 mg/dL [facility] Protein, sr 5.8(L) 6.1 - 8.1 g/dL [facility] Albumin 3.5(L) 3.6 - 5.1 g/dL [facility] GLOBULIN 2.3 1.9 - 3.7 g/dL (calc) [facility] Alb/glob ratio 1.5 1.0 - 2.5 (calc) [facility] Bilirubin, total 0.4 0.2 - 1.2 mg/dL [facility] Alk phos 93 37 - 153 U/L [facility] AST 23 10 - 35 U/L [facility] ALT (SGPT) 14 6 - 29 U/L [facility] Blood 01/09/2025 12:0 0 PM CDT 01/09/2025 12:01 PM CDT Kevin Jimenez DO LAB BLOOD ORDERABLES Final R esult [facility] [id number] [place] [address] from Last [address] [facility] MDCR HMO REF [facility] MEDICARE ADVANTAGE [facility] MEDICARE ADVANTAGE Care Teams Web Developer Relationship Specialty Start Date End Date Marina Zhou MD PCP - General Family Medicine 09/25/19 Kevin Jimenez DO Medical Oncologist/Card Puncher Hematology and Oncology 11/25/20
--- OUTSIDE RECORDS SUMMARY | 2025-01-13 08:09 | XMS_ITS | Clinical Summary ---
Author Organization [facility] Address [address] [place] [address] Care Team Providers Care Glass Washer Name Role Phone Unavailable Primary Care Provider Unavailabl e Social History Tobacco Use Types Packs/Day Years Used Date Smoking Tobacco: Never Assessed Comments Unknown Sex and Gender Information Value Date Recorded Sex Assigned at Not on file Legal Sex Female 5:13 PM CDT Gender Identity Not on file Sexual Orientation Not on file Plan of Treatment Health Maintenance Due Date Last Done Comments DTaP, Tdap and Td Vaccines ( 1 - Tdap) 1960 Zoster Vaccines (1 of 2) 1991 Dexa Scan (General) 2006 Pneumococcal Vaccine: 65+ Ye ars (1 of 1 - PCV) 2006 RSV Immunization or 60+ Years (1 - 1-dose 75+ series) 2016 COVID-19 Vaccine (2023-2 5 season) 2024 Influenza Adult (#1) 2024 Meningococcal B Vaccine Aged Out No l onger eligible based on patient's age to complete this topic Meningococcal Vaccine Aged Out No artis manisha eligible based on patient's age to complete this topic RSV Immunizations Under 20 Months Aged Out No longer eligible based on patient's age to complete this topic
--- OUTSIDE RECORDS SUMMARY | 2025-01-13 08:09 | XMS_ITS | Referral Summary ---
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 Not on file Not on file Last Filed Vital Signs Vital Sign Reading [...] 07/27/2023 10:47 AM CDT Plan of Treatment Not on file Procedures Procedure Name Priority Date/Time Associated Diagnosis [...] WBC 6.1 3.8 - 10.8 Thousand/u L [facility] RBC, POC 3.95 3.80 - 5.10 Million/uL [facility] Hgb 12.3 11.7 - 15.5 g/dL [facility] Hct 38.2 35.0 - 45.0 % [facility] MCV 96.7 80.0 - 100.0 fL [facility] MCH 31.1 27.0 - 33.[address] [facility] MCHC 32.2 32.0 - 36.0 g/dL [facility] Comment: For adults, a slight decrease in the calculated MCHC value (in the range of 30 to 32 g/dL) is most likely not clinically significant; however, it should be interpreted with caution in correlation with other red cell parameters and the patient's clinical condition. Rdw 11.7 11.0 - 15.0 % [facility] Platelets 348 140 - 400 Thousand/u L [facility] MPV 9.6 7.5 - 12.5 fL [facility] Neutrophils, abs 2,922 1,500 - 7,800 cells/uL [facility] Lymphocytes, abs 2,361 850 - 3,900 cells/uL [facility] Monocyte abs 659 200 - 950 cells/uL [facility] Eosinophils, abs 128 15 - 500 cells/uL [facility] Basophils, abs 31 0 - 200 cells/uL [facility] Neutrophils 47.9 % [facility] Lymphocyte pct 38.7 % [facility] Monocytes 10.8 % [facility] Eosinophils 2.1 % [facility] Basophils 0.5 % [facility] Blood 01/09/2025 12:0 0 PM CDT 01/09/2025 12:01 PM CDT Kevin MackeyJonnie Jimenez IPM [place] LAB BLOOD ORDERABLES Final R esult Performing Organization Address City/[facility]/ZIP Co de Phone Number [facility] [address] [place] [address] * CEA (01/09/2025 12:00 PM CDT) Pathologist [facility] CEA <2.0 See Note: ng/mL [facility] Comment: Reference Range: Non-Smoker: <2.5 Smoker: <5.0 This test was performed using the Siemens chemiluminescent method. Values obtained from different assay methods cannot be used interchangeably. CEA levels, regardless of value, should not be interpreted as absolute evidence of the presence or absence of disease. Blood 01/09/2025 12:0 0 PM CDT 01/09/2025 12:01 PM CDT Kevin Shruthi Jimenez LAB BLOOD ORDERABLES Final R [facility] Performing Organization Address City/[facility]/ZIP Co de Phone Number [facility] [address] [place] [address] * (ABNORMAL) Comprehensive metabolic panel (01/09/2025 12:00 PM CDT) Pathologist [facility] Glucose 95 65 - 99 mg/dL [facility] Comment: Fasting reference interval BUN 12 7 - 25 mg/dL [facility] Creatinine 0.95 0.60 - 0.95 mg/dL [facility] eGFR 59(L) > OR = 60 mL/min/1.7 3m2 [facility] BUN/creat ratio SEE NOTE: 6 - 22 (calc) [facility] Comment: Not Reported: BUN and Creatinine are within reference range. Sodium 140 135 - 146 mmol/L [facility] Potassium, pl 4.0 3.5 - 5.3 mmol/L [facility] Chloride 105 98 - 110 mmol/L [facility] CO2 29 20 - 32 mmol/L [facility] Calcium 9.3 8.6 - 10.4 mg/dL [facility] Protein, sr 5.8(L) 6.1 - 8.1 g/dL [facility] Albumin 3.5(L) 3.6 - 5.1 g/dL [facility] GLOBULIN 2.3 1.9 - 3.7 g/dL (calc) [facility] Alb/glob ratio 1.5 1.0 - 2.5 (calc) [facility] Bilirubin, total 0.4 0.2 - 1.2 mg/dL [facility] Alk phos 93 37 - 153 U/L [facility] AST 23 10 - 35 U/L [facility] ALT (SGPT) 14 6 - 29 U/L [facility] Blood 01/09/2025 12:0 0 PM CDT 01/09/2025 12:01 PM CDT Kevin Jimenez DO LAB BLOOD ORDERABLES Final R esult [facility] [address] [place] [address] from Last 3 Months Insurance [facility] MDCR HMO REF [facility] Address: [address] [address] [facility] MEDICARE ADVANTAGE [facility] MEDICARE Address: [address] [address] Member Subscriber Plan / Payer (Ef fective 2021-Present) Name:Ella Krishna Relation to Subscriber:Self Name:Ella Krishna Payer ID:[id number] (NAIC) Type:UHC MEDICARE Address: [place] [phone] Care Teams Product Management Specialist Relationship Specialty Start Date End Date Marina Zhou MD PCP - General Family Medicine 09/25/19 Kevin Jimenez DO Medical Oncologist/Count Room Clerk Hematology and Oncology 11/25/20
== END 2025-01-13 08:05 | disposition home or self-care (01) ==
PROVIDERS: PCP Nurse Practitioner Family; Visit Provider Internal Medicine Medical Oncology
DX: C18.2 Malignant neoplasm of ascending colon (principal)
CPT/HCPCS: 71260; 74177; Q9967

== ENCOUNTER 2025-07-17 08:02 | Outpatient (CLI) | payer MEDICARE, SELFPAY ==
--- NOTE | ~2025-07-17 | CT_ITS ---
EXAMINATION: CT abdomen pelvis w con DATE: 07/17/2025 08:54 INDICATION: Malignant neoplasm of ascending colon. TECHNIQUE: Computed tomography (CT) of the abdomen and pelvis was performed with 100 mL Omnipaque 350 intravenous contrast. Automated exposure control and iterative reconstruction technique were employed. The dose-length product was 388.34 mGy-cm. COMPARISON: CT 01/13/2025 FINDINGS: The visualized portions of lung bases demonstrate mild atelectasis. No pleural effusion. The heart size is normal. No pericardial effusion. The liver and spleen are normal. There are gallstones in the gallbladder, which is normal in size. 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 The adrenal glands and kidneys are normal. There are changes of right hemicolectomy. There are no pathologically enlarged lymph nodes. There is no free intraperitoneal fluid. There is a lipoma in right lateral chest wall. There is an infraumbilical ventral hernia containing fat. There is severe lumbar spondylosis. IMPRESSION: 1. No evidence of metastatic disease. Reviewed, dictated and finalized at location E.
--- OUTSIDE RECORDS SUMMARY | 2025-07-17 08:11 | XMS_ITS | Clinical Summary ---
Author Organization [facility] Address [address] [place] [address] Care Team Providers Care Program Evaluation Consultant Name Role Phone Unavailable Primary Care Provider [...] Td Vaccines ( 1 - Tdap) 1960 Pneumococcal Vaccine: 50+ Ye ars (1 of 1 - PCV) 1991 Zoster Vaccines (1 of 2) 1991 Dexa Scan (General) 2006 RSV Immunization or 60+ Years (1 - 1-dose 75+ series) 2016 COVID-19 Vaccine (2023-2 5 season) 2025 Meningococcal B Vaccine Aged Out No l onger eligible based on patient's age to complete this topic Meningococcal Vaccine Aged Out No artis manisha eligible based on patient's age to complete this topic RSV Immunizations Under 20 Months Aged Out No longer eligible based on patient's age to complete this topic
--- OUTSIDE RECORDS SUMMARY | 2025-07-17 08:11 | XMS_ITS | Clinical Summary ---
Author Organization [facility] [place] [address] Address [address] [place] [address] Care Team Providers Care Platform Stapler Name Role Phone Kevin Jimenez DO Unavailable Faye Delacruz NP Primary Care Provider [phone] Allergies No known active allergies Medications aspirin 81 mg enteric coated tablet daily Active multivitamin capsule Take 1 capsule by mouth daily Active cranberry 400 mg capsule cranberry 400 mg capsule Take by oral route. Active pantoprazole DR (PROTONIX) 40 mg EC tablet Take 1 tablet (40 mg total) by mouth daily 30 tablet 1 2 Active Additional Information Patient not taking.Reported on 01/23/2025 levothyroxine (SYNTHROID) 125 mcg tablet 5 Active Active Problems Problem Noted Date Diagnosed [...] of Binge Drinking Not on file 07/15 Education Answer Date Recorded What is the highest level of school you have completed or the highest degree you have received? 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 Not on file Not on file Not on file Obstetrics History Para Term AB IAB SAB Ectopic Multiple Livin g Live Births 2 2 2 2 2 Date Outcome GA Total Labor Labor/2nd/3rd Weight Sex Type Anes PTL Barbara A1 A5 Name Clin Term Term Comments x 2 Last Filed Vital Signs Vital Sign Reading Time Taken Comments Blood Pressure 130/83 01/23/2025 10:59 AM CDT Pulse 71 01/23/2025 10:59 AM CDT Temperature 37.3 C (99.1 F) 01/23/2025 10:59 AM CDT Respiratory Rate 18 01/23/2025 10:59 AM CDT Oxygen Saturation 100% 01/23/2025 10:59 AM CDT Inhaled Oxygen Concentration - - Weight 58 kg (127 lb 13.9 oz) 01/23/2025 10:59 A M CDT no shoes Height 161.3 cm (5' 3.5) 01/23/2025 10:59 AM CD T Body Mass Index 22.3 01/23/2025 10:59 AM CDT Plan of Treatment Health Maintenance Due Date Last Done Comments Depression Screening 1941 Fall Risk Assessment 1941 Osteoporosis Screening-Bone Density Scan 1941 Hepatitis B Screening 1959 Zoster Vaccine (1 of 2) 1991 Well Visit 65+ 2006 Pneumococcal vaccine 65+ (2 of 2 - PCV20 or PCV21) 11/15/2018 11/15/2017 Covid-19 Vaccine (4 - 2024-2 6 season) 2025 08/09/2021, 12/10/2020, 11/19/2020 Influenza Vaccine (#1) 2025 , 07/13/2020, 08/06/2019, Additional history exists DTaP/Tdap/Td Vaccine (2 - Td or Tdap) 02/15/2026 02/16/2016, 02/15/1996 Procedures Procedure Name Priority Date/Time Associated Diagnosis Comments CEA Routine 07/09/2025 12:43 PM CDT Malignant neoplasm of ascending colon (HCC) COMPREHENSIVE METABOLIC PANEL Routine 07/09/2025 12:43 PM CDT Malignant neoplasm of ascending colon (HCC) CBC WITH AUTO DIFFERENTIAL Routine 07/09/2025 12:43 PM CDT Malignant neoplasm of ascending colon (HCC) from Last 3 Months Results * (ABNORMAL) CBC with auto differential (07/09/2025 12:43 PM CDT) [facility] WBC 7.2 3.8 - 10.8 Thousand/u L [facility] RBC, POC 4.42 3.80 - 5.10 Million/uL [facility] Hgb 13.5 11.7 - 15.5 g/dL [facility] Hct 43.0 35.0 - 45.0 % [facility] MCV 97.3 80.0 - 100.0 fL [facility] MCH 30.5 27.0 - 33.0 pg [facility] MCHC 31.4(L) 32.0 - 36.0 g/dL [facility] Comment: For adults, a slight decrease in the calculated MCHC value (in the range of 30 to 32 g/dL) is most likely not clinically significant; however, it should be interpreted with caution in correlation with other red cell parameters and the patient's clinical condition. Rdw 12.9 11.0 - 15.0 % [facility] Platelets 365 140 - 400 Thousand/u L [facility] MPV 9.3 7.5 - 12.5 fL [facility] Neutrophils, abs 4,298 1,500 - 7,800 cells/uL [facility] Lymphocytes, abs 2,066 850 - 3,900 cells/uL [facility] Monocyte abs 533 200 - 950 cells/uL [facility] Eosinophils, abs 252 15 - 500 cells/uL [facility] Basophils, abs 50 0 - 200 cells/uL [facility] Neutrophils 59.7 % [facility] Lymphocyte pct 28.7 % [facility] Monocytes 7.4 % [facility] Eosinophils 3.5 % [facility] Basophils 0.7 % [facility] Blood 07/09/2025 12:4 3 PM CDT 07/09/2025 12:44 PM CDT Narrative [facility] - 07/10/2025 9:37 AM CDT FASTING:NO FASTING: NO Kevin Hawkins Tony DO LAB BLOOD ORDERABLES Final R esult [facility] [address] [place] [address] * CEA (07/09/2025 12:43 PM CDT) CEA <2.0 See Note: ng/mL [facility] Comment: Reference Range: Non-Smoker: <2.5 Smoker: <5.0 This test was performed using the Siemens chemiluminescent method. Values obtained from different assay methods cannot be used interchangeably. CEA levels, regardless of value, should not be interpreted as absolute evidence of the presence or absence of disease. Blood 07/09/2025 12:4 3 PM CDT 07/09/2025 12:44 PM CDT Narrative [facility] - 07/10/2025 9:37 AM CDT FASTING:NO FASTING: NO Kevin MackeyJonnie Tony LAB BLOOD ORDERABLES Final R esult Performing Organization Address City/[facility]/ZIP Co de Phone Number [facility] [address] [place] [address] * (ABNORMAL) Comprehensive metabolic panel (07/09/2025 12:43 PM CDT) Pathologist [facility] Glucose 105 65 - 139 mg/dL [facility] Comment: Non-fasting reference interval BUN 9 7 - 25 mg/dL [facility] Creatinine 1.09(H) 0.60 - 0.95 mg/dL [facility] eGFR 50(L) > OR = 60 mL/min/1.7 3m2 [facility] BUN/creat ratio 8 6 - 22 (calc) [facility] Sodium 143 135 - 146 mmol/L [facility] Potassium, pl 4.1 3.5 - 5.3 mmol/L [facility] Chloride 106 98 - 110 mmol/L [facility] CO2 28 20 - 32 mmol/L [facility] Calcium 10.3 8.6 - 10.4 mg/dL [facility] Protein, sr 6.4 6.1 - 8.1 g/dL [facility] Albumin 4.0 3.6 - 5.1 g/dL [facility] GLOBULIN 2.4 1.9 - 3.7 g/dL (calc) [facility] Alb/glob ratio 1.7 1.0 - 2.5 (calc) [facility] Bilirubin, total 0.4 0.2 - 1.2 mg/dL [facility] Alk phos 102 37 - 153 U/L [facility] AST 19 10 - 35 U/L [facility] ALT (SGPT) 14 6 - 29 U/L [facility] Blood 07/09/2025 12:4 3 PM CDT 07/09/2025 12:44 PM CDT Narrative [facility] - 07/10/2025 9:37 AM CDT FASTING:NO FASTING: NO Kevin Jimenez DO LAB BLOOD ORDERABLES Final R esult [facility] [address] [place] [address] from Last [address] [facility] MDCR HMO REF [facility] MEDICARE Address: [facility] [address] [place] [address] [facility] MEDICARE AD[facility]ANTAGE [facility] MEDICARE Address: [address] [phone] [facility] MEDICARE [facility] MEDICARE Address: [address] [address] Care Teams Platform Stapler Relationship Specialty Start Date End Date Faye Delacruz NP [address] [place] [address] PCP - General Internal Medicine 01/23/25 Kevin Jimenez DO Medical Oncologist/Residence Director Hematology and Oncology 11/25/20
[2025-07-17 08:37] LABS: Estimated Glomerular Filt Rate 39
== END 2025-07-17 08:03 | disposition home or self-care (01) ==
PROVIDERS: Visit Provider Internal Medicine Medical Oncology
DX: C18.2 Malignant neoplasm of ascending colon (principal)
CPT/HCPCS: 74177; Q9967